=== PATIENT | male | born 1960 | race Caucasian/White ===

== ENCOUNTER 2024-11-14 22:32 | Inpatient (IN) | payer BC ==
[~2024-11-14] VITALS: Ht 165.1 cm; Wt 84.4 kg
[2024-11-14] MEDS: ACETAMINOPHEN 325MG TABLET PO ONE (23:49)
[2024-11-15 00:42] LABS: BASOPHILS % 0.6 % (0.0-2.0); EOSINOPHILS % 8.8 % (0.0-5.0); HEMATOCRIT. 37.1 % (42.0-52.0); HEMOGLOBIN. 12.4 g/dL (14.0-18.0); LYMPHOCYTES % 17.6 % (20.0-50.0); MEAN PLATELET VOLUME 9.8 fl (7.4-10.4); MONOCYTES % 10.9 % (2.0-8.0); NEUTROPHILS % 62.1 % (40.0-76.0); PLATELET 151 x1000/uL (130-400); RED BLOOD CELL COUNT 3.93 mill/uL (4.7-6.1); RED CELL DISTRIBUTION WIDTH 14.0 % (11.6-14.6)
[2024-11-15 01:03] LABS: CREATININE 1.1 mg/dL (0.6-1.3)
[2024-11-15 01:04] LABS: ETHANOL BLOOD < 10 mg/dL (<10); UREA NITROGEN BLOOD 20 mg/dL (9-23)
[2024-11-15 01:08] LABS: TROPONIN I HIGH SENSITIVITY 99 ng/L (3.0-53)
[2024-11-15 03:48] LABS: TROPONIN I HIGH SENSITIVITY 181 ng/L (3.0-53)
[2024-11-15] MEDS: ENOXAPARIN 100MG/ML SYR SUBCUT NR (04:49)
[2024-11-15] MEDS: ASPIRIN 325MG EC TABLET PO NR (04:49)
[2024-11-15 05:20] LABS: TROPONIN I HIGH SENSITIVITY 234 ng/L (3.0-53)
[2024-11-15 06:05] VITALS: BP 140/73; PULSE 78; RESP 19; TEMP 36.5; O2SAT 97
[2024-11-15 08:00] VITALS: BP 127/75; PULSE 75; RESP 18; TEMP 36.2; O2SAT 98
[2024-11-15] MEDS ORDERED: DOCUSATE SODIUM 100MG CAPSULE PO PRN (08:15)
[2024-11-15] MEDS ORDERED: ACETAMINOPHEN 325MG TABLET PO PRN (08:15)
[2024-11-15] MEDS ORDERED: IPRATROPIUM/ALBUTEROL 0.5-3(2.5)MG/3ML NEB HHN PRN (08:15)
[2024-11-15] MEDS ORDERED: ONDANSETRON HCL 4MG/2ML INJ IV PRN (08:15)
[2024-11-15] MEDS: ACETAMINOPHEN 325MG TABLET PO PRN (11:35)
[2024-11-15 12:00] VITALS: BP 127/71; PULSE 76; RESP 20; TEMP 36.6; O2SAT 95
[2024-11-15] MEDS: LORAZEPAM 0.5MG TABLET PO PRN (12:36)
[2024-11-15 15:33] VITALS: BP 132/81; PULSE 75; RESP 18; TEMP 36.5292
[2024-11-15] MEDS ORDERED: DEXTROSE 50% WATER 50ML SYRINGE IV PRN (15:45)
[2024-11-15 16:00] VITALS: BP_SYST 175; BP_SYST 179; BP_DIAS 77; BP_DIAS 80; PULSE 66; RESP 20; TEMP 36.3; O2SAT 96
[2024-11-15] MEDS: BLOOD SUGAR DIAGNOSTIC STRIP TEST SCH (16:34)
[2024-11-15] MEDS: INSULIN LISPRO 100 UNITS/ML SUBCUT SCH (16:56)
[2024-11-15] MEDS: CLONIDINE 0.1MG TABLET PO PRN (17:46)
[2024-11-15 20:00] VITALS: BP 149/86; PULSE 67; RESP 17; TEMP 36.8; O2SAT 97
[2024-11-16] VITALS: BP 127/68; PULSE 60; RESP 17; TEMP 37; O2SAT 97
[2024-11-16] MEDS: AMLODIPINE 2.5MG TABLET PO SCH (02:38)
[2024-11-16 04:00] VITALS: BP 107/58; PULSE 65; RESP 17; TEMP 36.7; O2SAT 97
[2024-11-16 08:00] VITALS: BP 162/69; PULSE 71; RESP 18; TEMP 36.5; O2SAT 99
[2024-11-16] MEDS: ASPIRIN 81MG EC TABLET PO SCH (08:37)
[2024-11-16] MEDS: ENOXAPARIN 40MG/0.4ML SYR SUBCUT SCH (08:38)
[2024-11-16 10:55] LABS: UREA NITROGEN BLOOD 13 mg/dL (9-23)
[2024-11-16 10:57] LABS: CREATININE 1.0 mg/dL (0.6-1.3)
[2024-11-16 10:58] LABS: LDL CHOLESTEROL 55 mg/dL (5-100); TRIGLYCERIDE 86 mg/dL (0-150)
[2024-11-16 10:59] LABS: ASPARTATE AMINOTRANSFERASE 43 IU/L (<34)
[2024-11-16 11:00] LABS: BILIRUBIN TOTAL 0.7 mg/dL (0.1-1.0); PROTEIN TOTAL 6.8 g/dL (6.0-8.3)
[2024-11-16 11:27] LABS: FOLIC ACID (FOLATE) SERUM 16.02 ng/mL (>5.38)
[2024-11-16 11:28] LABS: VITAMIN B12 SERUM 1841 pg/mL (211-911)
[2024-11-16 11:41] LABS: TROPONIN I HIGH SENSITIVITY 133 ng/L (3.0-53)
[2024-11-16 12:00] VITALS: BP 150/66; PULSE 59; RESP 18; TEMP 37; O2SAT 99
[2024-11-16 14:05] LABS: BASOPHILS % 0.8 % (0.0-2.0); EOSINOPHILS % 11.6 % (0.0-5.0); HEMATOCRIT. 38.3 % (42.0-52.0); HEMOGLOBIN. 13.0 g/dL (14.0-18.0); LYMPHOCYTES % 26.7 % (20.0-50.0); MEAN PLATELET VOLUME 10.1 fl (7.4-10.4); MONOCYTES % 8.3 % (2.0-8.0); NEUTROPHILS % 52.6 % (40.0-76.0); PLATELET 170 x1000/uL (130-400); RED BLOOD CELL COUNT 4.11 mill/uL (4.7-6.1); RED CELL DISTRIBUTION WIDTH 14.0 % (11.6-14.6)
[2024-11-16] MEDS: MAGNESIUM OXIDE 400MG TABLET PO SCH (14:08)
[2024-11-16 16:00] VITALS: BP 156/72; PULSE 66; RESP 18; TEMP 35.9; O2SAT 97
[2024-11-16] MEDS: LIDOCAINE 5% PATCH TOP SCH (18:15)
[2024-11-16 20:00] VITALS: BP 125/59; PULSE 64; RESP 20; TEMP 36.9; O2SAT 94
[2024-11-16] MEDS ORDERED: IOHEXOL-350 100 ML BOTTLE ONE (22:04)
[2024-11-17] VITALS: BP 139/75; PULSE 67; RESP 20; TEMP 37.1; O2SAT 95
[2024-11-17 04:00] VITALS: BP 123/54; PULSE 62; RESP 20; TEMP 36.8; O2SAT 98
[2024-11-17 05:59] LABS: CREATININE 1.1 mg/dL (0.6-1.3)
[2024-11-17 06:00] LABS: UREA NITROGEN BLOOD 11 mg/dL (9-23)
[2024-11-17 06:46] LABS: BASOPHILS % 0.4 % (0.0-2.0); EOSINOPHILS % 9.8 % (0.0-5.0); HEMATOCRIT. 37.5 % (42.0-52.0); HEMOGLOBIN. 12.7 g/dL (14.0-18.0); LYMPHOCYTES % 22.4 % (20.0-50.0); MEAN PLATELET VOLUME 10.3 fl (7.4-10.4); MONOCYTES % 10.9 % (2.0-8.0); NEUTROPHILS % 56.5 % (40.0-76.0); PLATELET 163 x1000/uL (130-400); RED BLOOD CELL COUNT 4.05 mill/uL (4.7-6.1); RED CELL DISTRIBUTION WIDTH 13.6 % (11.6-14.6)
[2024-11-17 06:49] LABS: TROPONIN I HIGH SENSITIVITY 73 ng/L (3.0-53)
[2024-11-17 08:00] VITALS: BP 132/70; PULSE 68; RESP 18; TEMP 36.5; O2SAT 98
[2024-11-17 12:00] VITALS: BP 148/69; PULSE 69; RESP 18; TEMP 36.7; O2SAT 96
[2024-11-17] MEDS ORDERED: LEVO750T68 MT (15:05)
[2024-11-17] MEDS: LEVOFLOXACIN 250MG TABLET PO SCH (15:53)
[2024-11-17 16:50] VITALS: BP 148/87; PULSE 78; TEMP 98.3; O2SAT 98
== END 2024-11-17 17:20 | disposition home or self-care (01) | DRG 205 ==
LOC: ER 22:32 → 8WST 11-15 04:53 → EDBEDREQ 11-15 04:56 → EDBEDREQTM 11-15 04:56 → ENRESERV 11-15 05:36 → 8WST 11-15 09:41
PROVIDERS: ADMIT Internal Medicine; ATTEND Internal Medicine
DX: S27.321A Contusion of lung, unilateral, initial encounter (principal); I21.4 Non-ST elevation (NSTEMI) myocardial infarction; G93.49 Other encephalopathy; D53.9 Nutritional anemia, unspecified; F03.90 Unspecified dementia, unspecified severity, without behavioral disturbance, psychotic disturbance, mood disturbance, and anxiety; E11.65 Type 2 diabetes mellitus with hyperglycemia; I10 Essential (primary) hypertension; K76.0 Fatty (change of) liver, not elsewhere classified; K57.30 Diverticulosis of large intestine without perforation or abscess without bleeding; D72.10 Eosinophilia, unspecified; E11.9 Type 2 diabetes mellitus without complications; I45.10 Unspecified right bundle-branch block; E87.8 Other disorders of electrolyte and fluid balance, not elsewhere classified; W18.39XA Other fall on same level, initial encounter; Z79.4 Long term (current) use of insulin; Z79.82 Long term (current) use of aspirin; Z86.73 Personal history of transient ischemic attack (TIA), and cerebral infarction without residual deficits; Z91.81 History of falling; Y93.89 Activity, other specified; Y92.89 Other specified places as the place of occurrence of the external cause; Y99.8 Other external cause status
CPT/HCPCS: 36415; 71250; 71275; 73080; 74176; 80048; 80053; 80061; 80320; 82607; 82746; 82962; 83036; 83735; 83880; 84484; 85025; 93005; 93306; 99291; A4606; J1650; J1815; Q9967; G0480